=== PATIENT | female | born 1980 | race Caucasian/White ===

== ENCOUNTER 2017-01-29 17:06 | Emergency (ER) | payer MEDICAID ==
[~2017-01-29] VITALS: Ht 167.6 cm; Wt 95.5 kg
[~2017-01-29 17:06] MED LIST: GABA-531 PO
[2017-01-29] MEDS ORDERED: NAPR-58 PO (17:46)
[2017-01-29] MEDS ORDERED: NORT10 PO (17:46)
[2017-01-29 18:04] VITALS: BP 153/88
[2017-01-29] MEDS ORDERED: KETOROLAC TROMETHAMINE 30 MG/ML VIAL IM ONE (18:30)
[2017-01-29] MEDS ORDERED: LIDOCAINE HCL 5% TRANSDERMAL PATCH TD ONE (18:30)
[2017-01-29] MEDS ORDERED: CYCLOBENZAPRINE HCL 10 MG TABLET PO ONE (18:30)
== END 2017-01-29 18:48 | disposition home or self-care (01) ==
LOC: EMS 17:07
DX: M54.41 Lumbago with sciatica, right side (principal); R03.0 Elevated blood-pressure reading, without diagnosis of hypertension; Z88.5 Allergy status to narcotic agent
CPT/HCPCS: 96372; 99283; J1885

== ENCOUNTER 2017-12-17 20:23 | Emergency (ER) | payer SELFPAY ==
[~2017-12-17] VITALS: Ht 167.6 cm; Wt 95.5 kg
[~2017-12-17 20:23] MED LIST changes: +NAPR-58 PO; +NORT10 PO
[2017-12-17] MEDS ORDERED: VITAD400 PO (20:31)
[2017-12-17] MEDS ORDERED: LIDOCAINE HCL/PF 1% 5 ML VIAL INJ ONE (22:00)
[2017-12-17 22:47] VITALS: BP 140/80
== END 2017-12-17 23:01 | disposition home or self-care (01) ==
LOC: EMS 20:23
DX: L02.416 Cutaneous abscess of left lower limb (principal); F17.210 Nicotine dependence, cigarettes, uncomplicated; Z88.5 Allergy status to narcotic agent
CPT/HCPCS: 10060; 99283; J3490